=== PATIENT | male | born 1975 | race Caucasian/White ===

== ENCOUNTER 2021-07-07 19:43 | Emergency (ER) | payer OTHER, SELFPAY ==
--- NOTE | ~2021-07-07 | XR_ITS ---
EXAMINATION: XR hand RT min 3V DATE: 07/07/2021 21:26 INDICATION: Right hand pain. TECHNIQUE: 3 views of right hand were obtained. COMPARISON: None. FINDINGS: Bone alignment is normal. No acute fracture. There is a fracture deformity of fifth proxima l phalanx with plate and screw fixation. There is moderate osteoarthritis of distal radioulnar joint, mild osteoarthritis of radiolunate joint, first carpometacarpal joint, and first and second metacarp ophalangeal joints, and moderate osteoarthritis of fifth proximal interphalangeal joint. IMPRESSION: 1. Polyarticular osteoarthritis. Reviewed, dictated and finalized at location E. O RENTAL CLERK
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
--- NOTE | ~2021-07-07 | XR_ITS ---
EXAMINATION: XR wrist LT min 3V DATE: 07/07/2021 21:26 INDICATION: Left wrist pain. TECHNIQUE: 4 views of left wrist were obtained. COMPARISON: None. FINDINGS: There is dorsal tilt of lunate. Scapholunate dissociation is noted with rotatory subluxatio n of scaphoid. No fracture. There is moderate osteoarthritis of distal radioulnar joint. IMPRESSION: 1. 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 2. Moderate osteoarthritis of distal radioulnar joint. Reviewed, dictated and finalized at location E. ESTATE SALES MANAGER IMPRESSION: 1. 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 2. Moderate osteoarthritis of distal radioulnar joint.
--- NOTE | ~2021-07-07 | XR_ITS ---
EXAMINATION: XR hand LT min 3V DATE: 07/07/2021 21:26 INDICATION: Left hand pain. TECHNIQUE: 3 views of left hand were obtained. COMPARISON: None. FINDINGS: There is dorsal tilt of lunate, consistent with dorsal intercalated segmental instability. No fracture. There is moderate osteoarthritis of distal radioulnar joint and mild osteoarthritis of f irst and second metacarpophalangeal joints and first interphalangeal joint. IMPRESSION: 1. Polyarticular osteoarthritis. 2. Dorsal intercalated segmental instability (DISI). Reviewed, dictated and finalized at location E. P LEADER
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
--- NOTE | ~2021-07-07 | XR_ITS ---
EXAMINATION: XR wrist RT min 3V DATE: 07/07/2021 21:26 INDICATION: Right wrist pain. TECHNIQUE: 4 views of right wrist were obtained. COMPARISON: None. FINDINGS: Scapholunate dissociation is noted. There is rotatory subluxation of scaphoid. There is denice larissa tilt of lunate. No fracture. There is moderate osteoarthritis of distal radioulnar joint and mild osteoarthritis of triscaphe joint and first carpometacarpal joint. There is mild osteoarthritis of r adiolunate joint. IMPRESSION: 1. Polyarticular osteoarthritis. 2. 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 Reviewed, dictated and finalized at location E. ER TESTER IMPRESSION: 1. Polyarticular osteoarthritis. 2. 

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
[2021-07-07 19:52] VITALS: BP 101/86; PULSE 98; RESP 20; TEMP 36.8; O2SAT 100
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
[2021-07-07] MEDS: HYDROmorphone HCL INJ (*CRX) 1 MG/ML SYR 0.5 MG IV PUSH (21:25)
[2021-07-07 21:38] LABS: Basophils Absolute Auto 0.1 K/mm3 (0.0-0.1); Basophils Percent Auto 0.4 % (0.2-1.2); Eosinophils Absolute Auto 0.1 K/mm3 (0-0.3); Eosinophils Percent Auto 0.4 % (0-4.4); Hemoglobin 15.7 g/dL (14.0-18.0); Immature Granulocyte Absolute 0.08 K/mm3 (0.00-0.031); Immature Granulocyte Percent A 0.5 % (0-0.5); Lymphocytes Absolute Auto 1.24 K/mm3 (0.9-3.2); Lymphocytes Percent Auto 7.6 % (18.3-44.2); Mean Corpuscular HGB Conc 34.1 g/dl (32-36); Mean Corpuscular Hemoglobin 31.5 pg (26-34); Mean Corpuscular Volume 92.4 fl (80-100); Mean Platelet Volume 11.2 fl (7.4-10.4); Monocytes Absolute Auto 0.9 K/mm3 (0.1-0.6); Monocytes Percent Auto 5.2 % (2.6-8.5); Neutrophils Absolute Auto 14.1 K/mm3 (1.3-6.7); Neutrophils Percent Auto 85.9 % (45.5-73.1); Platelet Count Result 224 k/mm3 (150-375); Red Blood Count 4.98 M/mm3 (4.6-6.20); Red Cell Distribution Width 13.2 % (11.5-14.5); White Blood Count 16.4 K/mm3 (4.5-10.0)
[2021-07-07 22:10] LABS: Prothrombin Time 12.7 Seconds (11.1-14.7)
[2021-07-07 22:11] LABS: Partial Thromboplastin Time 25.5 SECONDS (22.3-36.8)
[2021-07-07 22:43] LABS: Estimated CRCL calculation 100 ml/min; Estimated Glomerular Filt Rate > 60
[2021-07-07 22:56] LABS: Ethanol < 10 mg/dL (<10)
[2021-07-07 23:04] LABS: Alanine Aminotransferase 29 U/L (4-50); Alkaline Phosphatase 99 U/L (38-126); Anion Gap 3 mmol/L (8-16); Aspartate Amino Transferase 30 U/L (17-59); Bilirubin,Total 0.5 mg/dL (0.2-1.3); Blood Urea Nitrogen 17 mg/dL (9-20); Carbon Dioxide 28 mmol/L (22-30); Chloride 106 mmol/L (98-107); Estimated CRCL calculation 100 ml/min; Estimated Glomerular Filt Rate > 60; Glucose 91 mg/dL (65-110); Potassium 4.1 mmol/L (3.4-5.0); Sodium 137 mmol/L (137-145)
[2021-07-07] MEDS: SODIUM CHLORIDE 0.9% IV 1,000 ML 999 ML IV CONT (23:23)
[2021-07-08] MEDS: HYDROcodone/acetaminophen (*CRX) 5-325 MG TABLET 1 TAB PO (00:54)
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
== END 2021-07-08 02:00 | disposition home or self-care (01) ==
PROVIDERS: Emergency Provider Emergency Medicine
DX: S00.83XA Contusion of other part of head, initial encounter (principal); S20.219A Contusion of unspecified front wall of thorax, initial encounter; S63.391A Traumatic rupture of other ligament of right wrist, initial encounter; S63.392A Traumatic rupture of other ligament of left wrist, initial encounter; M19.032 Primary osteoarthritis, left wrist; M19.031 Primary osteoarthritis, right wrist; M19.042 Primary osteoarthritis, left hand; M19.041 Primary osteoarthritis, right hand; J32.9 Chronic sinusitis, unspecified; J43.9 Emphysema, unspecified; Y04.2XXA Assault by strike against or bumped into by another person, initial encounter
CPT/HCPCS: 36415; 70450; 70486; 71260; 73110; 73130; 74177; 80053; 80307; 85025; 85610; 85730; 96361; 96374; 99284; A9270; J1170; J7030; Q9967